=== PATIENT | male | born 1945 | race Caucasian/White ===

== ENCOUNTER 2022-12-12 05:20 | Day surgery (SDC) | payer MEDICARE ==
[2022-12-12 05:52] LABS: HEMATOCRIT 41.7 % (38.4-49.7); HEMOGLOBIN 13.7 g/dL (12.9-16.9); MEAN CORPUSCULAR HGB CONC 32.9 g/dL (31.6-35.5); MEAN CORPUSCULAR VOLUME 85.3 fL (81.4-99.0); RED BLOOD CELL COUNT 4.89 M/uL (4.14-5.76); WHITE BLOOD CELL COUNT,WBC 8.5 K/uL (3.2-11.0)
[2022-12-12] MEDS ORDERED: Albuterol/Ipratropium 3.0-0.5 MG/3 ML Neb Soln NEB ONE (06:00)
[2022-12-12] MEDS ORDERED: Dextrose 5%-Lactated Ringers 1,000 ML IV SCH (06:00)
[2022-12-12] MEDS ORDERED: ceFAZolin 2 GM in Premix Bag 1 BAG IV ONE (06:00)
[2022-12-12 06:22] LABS: A/G RATIO 0.9 (1.2-2.2); ALANINE AMINOTRANSFERASE,ALT 25 U/L (12-78); ALBUMIN 3.3 g/dL (3.4-5.0); ALKALINE PHOSPHATASE 43 U/L (46-116); ASPARTATE AMNIOTRANSFERASE,AST 16 U/L (15-37); BILIRUBIN TOTAL 0.4 mg/dL (0.2-1.0); BLOOD UREA NITROGEN,BUN 15 mg/dL (7-18); CALCIUM 8.8 mg/dL (8.5-10.1); CARBON DIOXIDE,CO2 32 mmol/L (21-32); CHLORIDE,CL 102 mmol/L (100-108); CREATININE 0.9 mg/dL (0.8-1.3); EST CRCL DRUG DOSING (CG) 82.15 mL/min; ESTIMATED GFR 88 mL/min (>60); GLUCOSE RANDOM 173 mg/dL (74-106); MAGNESIUM 1.9 mg/dL (1.8-2.4); PHOSPHORUS 3.7 mg/dL (2.5-4.9); POTASSIUM,K 3.7 mmol/L (3.6-5.2); PRO B-TYPE NATRIUR PEPT,BNPPRO 62 pg/mL (5-450); PROTEIN TOTAL,TP 7.1 g/dL (6.4-8.2); SODIUM,NA 139 mmol/L (140-148); TSH ULTRASENSITIVE 1.289 uIU/mL (0.358-3.740)
[2022-12-12 06:27] LABS: ANION GAP 8.7 mmol/L (5.0-14.0)
[2022-12-12] MEDS ORDERED: fentaNYL 250 MCG/5 ML SDV ONE (07:04)
[2022-12-12] MEDS ORDERED: Succinylcholine 200 MG/10 ML MDV ONE (07:04)
[2022-12-12] MEDS ORDERED: Ondansetron 4 MG/2 ML SDV ONE (07:04)
[2022-12-12] MEDS ORDERED: Propofol 200 MG/20 ML SDV ONE (07:04)
[2022-12-12] MEDS ORDERED: Dexamethasone 4 MG/ML SDV ONE (07:04)
[2022-12-12] MEDS ORDERED: Glycopyrrolate 0.2 MG/ML 5 ML MDV ONE (07:04)
[2022-12-12] MEDS ORDERED: Neostigmine Methylsulfate 1 MG/ML 5 ML Syringe ONE (07:04)
[2022-12-12] MEDS ORDERED: Rocuronium 50 MG/5 ML Vial ONE (07:05)
[2022-12-12] MEDS ORDERED: Ketamine 25 MG in Sodium Chloride 0.9% 19.75 ML IV SCH (07:30)
[2022-12-12] MEDS ORDERED: Ketamine 500 MG/5 ML MDV IV SCH (07:30)
[2022-12-12] MEDS ORDERED: Linezolid 600 MG/300 ML Premix Bag IRR ONE (08:05)
[2022-12-12] MEDS ORDERED: Lactated Ringers 1,000 ML ONE (09:28)
[2022-12-12] MEDS ORDERED: fentaNYL 100 MCG/2 ML SDV ONE (09:37)
[2022-12-12] MEDS ORDERED: Glucagon,Human Recombinant 1 MG Vial IM PRN ×2 (10:24→10:41)
[2022-12-12] MEDS ORDERED: 50% Dextrose in Water 50 ML Syringe IVPUSH PRN ×2 (10:24→10:41)
[2022-12-12] MEDS ORDERED: HYDROmorphone 2 MG Tab PO PRN (10:34)
[2022-12-12] MEDS ORDERED: Ondansetron 4 MG/2 ML SDV IVPUSH PRN (10:35)
[2022-12-12] MEDS ORDERED: Albuterol/Ipratropium 3.0-0.5 MG/3 ML Neb Soln INH PRN (10:39)
[2022-12-12] MEDS ORDERED: Insulin Lispro 100 Unit/ML 3 ML KwikPen SUBCUT ONE (10:40)
[2022-12-12] MEDS ORDERED: Glucose Gel 15 GM in 37.5 GM Tube PO PRN (10:41)
[2022-12-12] MEDS ORDERED: Acetaminophen 1,000 MG in Premix Bag 1 BAG IV ONE (10:45)
[2022-12-12] MEDS ORDERED: HYDROmorphone 0.5 MG/0.5 ML Syringe IVPUSH PRN (11:00)
[2022-12-12] MEDS ORDERED: HYDROmorphone 1 MG/ML Syringe IV PRN (11:00)
[2022-12-12] MEDS: Insulin Lispro 100 Unit/ML 3 ML KwikPen SUBCUT SCH ×3 (11:37→21:52)
[2022-12-12] MEDS: Albuterol/Ipratropium 3.0-0.5 MG/3 ML Neb Soln INH SCH ×3 (12:37→21:58)
[2022-12-12] MEDS: ceFAZolin 2 GM in Premix Bag 1 BAG IV SCH ×2 (13:24→22:00)
[2022-12-12] MEDS: Acetaminophen 325 MG Tab PO SCH ×2 (16:46→21:59)
[2022-12-12] MEDS: metFORMIN 500 MG Tab PO SCH (16:46)
[2022-12-12] MEDS: Lactated Ringers 1,000 ML IV SCH (18:27)
[2022-12-12] MEDS ORDERED: Insulin Glargine,Human Rec. Analog 100 Units/ML 3 ML Pen SUBCUT SCH ×2 (21:00)
[2022-12-12] MEDS: Losartan 50 MG Tab PO SCH (21:59)
[2022-12-13] MEDS: Acetaminophen 325 MG Tab PO SCH ×2 (04:34→10:02)
[2022-12-13] MEDS: Lactated Ringers 1,000 ML IV SCH (04:44)
[2022-12-13 05:01] LABS: ANION GAP 9.6 mmol/L (5.0-14.0); CALCIUM 8.5 mg/dL (8.5-10.1); CREATININE 0.7 mg/dL (0.8-1.3); EST CRCL DRUG DOSING (CG) 105.63 mL/min; MAGNESIUM 1.8 mg/dL (1.8-2.4); PHOSPHORUS 3.8 mg/dL (2.5-4.9)
[2022-12-13] MEDS: ceFAZolin 2 GM in Premix Bag 1 BAG IV SCH (05:43)
[2022-12-13] MEDS: Albuterol/Ipratropium 3.0-0.5 MG/3 ML Neb Soln INH SCH (07:04)
[2022-12-13] MEDS: metFORMIN 500 MG Tab PO SCH (07:33)
[2022-12-13] MEDS ORDERED: Calcium Carbonate 500 MG Tab.Chew PO PRN (07:35)
[2022-12-13] MEDS: Losartan 50 MG Tab PO SCH (08:40)
[2022-12-13] MEDS: Insulin Lispro 100 Unit/ML 3 ML KwikPen SUBCUT SCH (08:40)
[2022-12-13] MEDS ORDERED: Hydrochlorothiazide 25 MG Tab PO SCH (09:00)
[2022-12-13] MEDS ORDERED: Aspirin 81 MG Tab.EC PO SCH (09:00)
[2022-12-14] MEDS ORDERED: Levothyroxine 100 MCG Tab PO SCH (07:30)
== END 2022-12-13 10:15 ==
LOC: JP.SDS 05:20 → UNDOADMIN 09:50 → JP.MS 09:50 → JP.SDS 12-13 10:15 → UNDODISIN 12-13 10:15
PROVIDERS: ATTEND Surgery
DX: E04.2 Nontoxic multinodular goiter (principal); J44.9 Chronic obstructive pulmonary disease, unspecified; I10 Essential (primary) hypertension; E78.5 Hyperlipidemia, unspecified; E11.22 Type 2 diabetes mellitus with diabetic chronic kidney disease; Z79.899 Other long term (current) drug therapy; Z87.891 Personal history of nicotine dependence; Z88.8 Allergy status to other drugs, medicaments and biological substances; Z91.041 Radiographic dye allergy status
CPT/HCPCS: 36415; 80048; 80053; 82947; 83735; 83880; 84100; 84443; 85027; 88307; 93005; 94640; A9270-GY; J0131; J0330; J0690; J1100; J1170; J1815; J1815-GY; J2020; J2405; J2704; J2710; J3010; J3490; J7120; J7121; J7620